=== PATIENT | male | born 1950 | race African-American/Black ===

== ENCOUNTER 2018-02-26 11:00 | Inpatient (IN) | payer MEDICARE, MEDICAID ==
[~2018-02-26] VITALS: Ht 188 cm; Wt 114.8 kg
[~2018-02-26 11:00] MED LIST: METH-611 PO
[2018-02-26 11:41] LABS: BASOPHILS % 0.5 % (0.0-2.0); EOSINOPHILS % 1.8 % (0.0-5.0); HEMATOCRIT. 48.2 % (42.0-52.0); HEMOGLOBIN. 16.4 g/dL (14.0-18.0); LYMPHOCYTES % 24.9 % (20.0-50.0); MEAN CORPUSCULAR HEMOGLOBIN 32.9 pg (28.0-32.0); MEAN CORPUSCULAR VOLUME 96.5 fL (80.0-94.0); NEUTROPHILS % 66.8 % (40.0-76.0); PLATELET 254 x1000/uL (130-400); RED BLOOD CELL COUNT 4.99 mill/uL (4.7-6.1); RED CELL DISTRIBUTION WIDTH 14.1 % (11.6-14.6)
[2018-02-26 11:47] LABS: CHLORIDE 109 mEq/L (98-107)
[2018-02-26] MEDS ORDERED: KETOROLAC 60MG/2ML VIAL IM ONE (13:45)
[2018-02-26] MEDS ORDERED: AMPICILLIN SOD/SULBACTAM NA 3 G in SODIUM CHLORIDE 0.9% 100 ML IV STA (16:58)
[2018-02-26] MEDS ORDERED: KETOROLAC 15MG/ML VIAL IV ONE (17:00)
[2018-02-26] MEDS ORDERED: MORPHINE SULFATE 4 MG/ML CPJ (NOT FOR IM USE) IV ONE (17:00)
[2018-02-26] MEDS ORDERED: SODIUM CHLORIDE 0.9% 1,000 ML IV ONE (17:00)
[2018-02-26] MEDS ORDERED: ONDANSETRON HCL 4MG/2ML VIAL IV PRN (18:15)
[2018-02-26] MEDS ORDERED: IPRATROPIUM/ALBUTEROL 0.5-3(2.5)MG/3ML NEB INH PRN (18:15)
[2018-02-26] MEDS ORDERED: MORPHINE SULFATE 4 MG/ML CPJ (NOT FOR IM USE) IV PRN (18:45)
[2018-02-26] MEDS ORDERED: DIPHENHYDRAMINE 50MG/ML VIAL IV PRN (18:45)
[2018-02-26] MEDS ORDERED: LACTULOSE 20G/30ML UDC PO PRN (18:45)
[2018-02-26] MEDS ORDERED: NICOTINE 14MG PATCH TD NR (21:00)
[2018-02-26] MEDS ORDERED: ZOLPIDEM TARTRATE 5MG TABLET PO PRN (21:00)
[2018-02-26] MEDS ORDERED: PIPERACILLIN/TAZ 3.375G PREMIX 50 ML IV SCH (22:00)
[2018-02-26 22:20] VITALS: BP 129/90
[2018-02-26 23:00] VITALS: BP 129/90
[2018-02-26] MEDS: MORPHINE SULFATE 4 MG/ML CPJ (NOT FOR IM USE) IV PRN (23:32)
[2018-02-26] MEDS: FAMOTIDINE 20MG/2ML VIAL IV SCH (23:32)
[2018-02-27] VITALS: BP 122/80
[2018-02-27] MEDS ORDERED: ACETAMINOPHEN 325MG TABLET PO PRN
[2018-02-27] MEDS: PIPERACILLIN/TAZ 3.375G PREMIX 50 ML IV SCH ×2 (00:17→05:31)
[2018-02-27] MEDS ORDERED: AMLO2.5T2 PO (02:02)
[2018-02-27] MEDS ORDERED: HYDR-3280 PO (02:02)
[2018-02-27 02:19] LABS: CLARITY URINE CLEAR (CLEAR); COLOR URINE YELLOW (YELLOW); KETONES URINE NEGATIVE (NEGATIVE); LEUKOCYTE ESTERASE URINE NEGATIVE (NEGATIVE); NITRITE URINE NEGATIVE (NEGATIVE); OCCULT BLOOD URINE NEGATIVE (NEGATIVE); PH URINE 5.5 (4.5-8.0); PROTEIN URINE NEGATIVE (NEGATIVE); SPECIFIC GRAVITY URINE 1.014 (1.005-1.030); UROBILINOGEN URINE 0.2 E.U./dL (0.2-1.0)
[2018-02-27 02:29] LABS: *AMPHETAMINES SCREEN URINE NEGATIVE (NEGATIVE); *BARBITURATES SCREEN URINE NEGATIVE (NEGATIVE); *BENZODIAZEPINES SCREEN URINE NEGATIVE (NEGATIVE); *COCAINE SCREEN URINE NEGATIVE (NEGATIVE)
[2018-02-27 02:30] LABS: CANNABINOID URINE SCREEN PRESUMTIVE POSITIVE (NEGATIVE); METHADONE URINE SCREEN NEGATIVE (NEGATIVE); OPIATES URINE SCREEN PRESUMTIVE POSITIVE (NEGATIVE); PHENCYCLIDINE URINE SCREEN NEGATIVE (NEGATIVE)
[2018-02-27 04:00] VITALS: BP 105/54
[2018-02-27 08:00] VITALS: BP 120/88
[2018-02-27] MEDS ORDERED: NICOTINE 14MG PATCH TD SCH ×2 (09:00)
[2018-02-27] MEDS: FAMOTIDINE 20MG/2ML VIAL IV SCH (09:01)
[2018-02-27] MEDS: MORPHINE SULFATE 4 MG/ML CPJ (NOT FOR IM USE) IV PRN (09:02)
[2018-02-27] MEDS ORDERED: LIDOCAINE HCL/PF 1% 10 MG/ML 5ML VIAL ONE (12:23)
[2018-02-27] MEDS ORDERED: SODIUM BICARBONATE 4% (2.4MEQ) 5ML VIAL IV ONE (12:24)
== END 2018-02-27 12:55 | disposition left against medical advice (07) | DRG 156 ==
LOC: ER 11:43 → 5WST 17:52 → SUPCPDRO 17:56 → EDBEDREQSVC 18:35 → EDBEDREQTM 18:35 → ENRESERV 20:51 → ER 22:05
PROVIDERS: ADMIT Internal Medicine; ATTEND Internal Medicine
DX: K11.8 Other diseases of salivary glands (principal); E87.5 Hyperkalemia; B19.20 Unspecified viral hepatitis C without hepatic coma; D72.829 Elevated white blood cell count, unspecified; F17.210 Nicotine dependence, cigarettes, uncomplicated; R59.1 Generalized enlarged lymph nodes; Z53.21 Procedure and treatment not carried out due to patient leaving prior to being seen by health care provider; I10 Essential (primary) hypertension; Z53.29 Procedure and treatment not carried out because of patient's decision for other reasons; F10.10 Alcohol abuse, uncomplicated; F19.10 Other psychoactive substance abuse, uncomplicated; Z79.1 Long term (current) use of non-steroidal anti-inflammatories (NSAID); Z79.899 Other long term (current) drug therapy; Z91.19 Patient's noncompliance with other medical treatment and regimen
CPT/HCPCS: 36415; 70490; 71045; 74176; 76536; 80048; 80076; 80305; 81003; 82248; 84443; 84484; 85025; 87040; 87086; 87186; 96365; 96375; 99285; J0295; J1885; J2270; J2543; J3490; J7030; J7050

== ENCOUNTER 2019-08-21 17:21 | Emergency (ER) | payer MEDICARE, MEDICAID ==
[~2019-08-21] VITALS: Ht 190.5 cm; Wt 110.0 kg
[~2019-08-21 17:21] MED LIST changes: +AMLO2.5T2 PO; +HYDR-3280 PO; -METH-611 PO
[2019-08-21] MEDS ORDERED: IBUPROFEN 600MG TABLET PO ONE (19:30)
[2019-08-21] MEDS ORDERED: DIPHENHYDRAMINE 25MG CAPSULE PO ONE (19:30)
[2019-08-21 19:55] VITALS: BP 111/80
== END 2019-08-21 19:55 | disposition home or self-care (01) ==
LOC: ER 17:21
DX: D17.22 Benign lipomatous neoplasm of skin and subcutaneous tissue of left arm (principal); S40.862A Insect bite (nonvenomous) of left upper arm, initial encounter; S40.861A Insect bite (nonvenomous) of right upper arm, initial encounter; W57.XXXA Bitten or stung by nonvenomous insect and other nonvenomous arthropods, initial encounter; Y93.89 Activity, other specified; Y92.89 Other specified places as the place of occurrence of the external cause
CPT/HCPCS: 99283

== ENCOUNTER 2019-10-30 08:48 | Inpatient (IN) | payer MEDICARE, MEDICAID ==
[~2019-10-30] VITALS: Ht 188 cm; Wt 100.7 kg
[2019-10-30] MEDS ORDERED: SODIUM CHLORIDE 0.9% 1,000 ML IV ONE (11:06)
[2019-10-30] MEDS ORDERED: MAGNESIUM/ALUMINUM HYDROXIDE/SIMETHICONE 30ML UDC PO STA (11:06)
[2019-10-30 11:34] LABS: BASOPHILS % 0.6 % (0.0-2.0); EOSINOPHILS % 0.7 % (0.0-5.0); HEMATOCRIT. 45.9 % (42.0-52.0); HEMOGLOBIN. 15.5 g/dL (14.0-18.0); LYMPHOCYTES % 16.4 % (20.0-50.0); MEAN CORPUSCULAR HEMOGLOBIN 34.6 pg (28.0-32.0); MEAN CORPUSCULAR VOLUME 102.2 fL (80.0-94.0); MEAN PLATELET VOLUME 9.4 fl (7.4-10.4); MONOCYTES % 4.9 % (2.0-8.0); NEUTROPHILS % 77.4 % (40.0-76.0); PLATELET 187 x1000/uL (130-400); RED BLOOD CELL COUNT 4.49 mill/uL (4.7-6.1); RED CELL DISTRIBUTION WIDTH 13.7 % (11.6-14.6)
[2019-10-30 11:41] LABS: PROTHROMBIN TIME 10.7 sec (9.6-11.0)
[2019-10-30] MEDS ORDERED: PANTOPRAZOLE SODIUM 40 MG/VIAL IV ONE (14:30)
[2019-10-30 15:25] LABS: CHLORIDE 107 mEq/L (98-107)
[2019-10-30] MEDS ORDERED: ACETAMINOPHEN 325MG TABLET PO PRN (17:45)
[2019-10-30] MEDS ORDERED: ACETAMINOPHEN 650MG SUPP PR PRN (17:45)
[2019-10-30] MEDS ORDERED: DOCUSATE SODIUM 100MG CAPSULE PO PRN (17:45)
[2019-10-30] MEDS ORDERED: NA PHOS,M-B/NA PHOS,DI-BA ENEMA 118ML PR PRN (17:45)
[2019-10-30] MEDS ORDERED: ONDANSETRON HCL 4MG/2ML INJ IV PRN (17:45)
[2019-10-30] MEDS ORDERED: DIPHENHYDRAMINE 50MG/ML VIAL IV PRN (17:45)
[2019-10-30] MEDS ORDERED: MAGNESIUM/ALUMINUM HYDROXIDE/SIMETHICONE 30ML UDC PO PRN (17:45)
[2019-10-30] MEDS ORDERED: GUAIFENESIN 200MG/10ML SUGAR FREE UDC PO PRN (17:45)
[2019-10-30] MEDS ORDERED: CLONIDINE 0.1MG TABLET PO PRN (17:45)
[2019-10-30] MEDS ORDERED: IPRATROPIUM/ALBUTEROL 0.5-3(2.5)MG/3ML NEB NEB PRN (17:45)
[2019-10-30] MEDS ORDERED: DEXT 5%/0.45% NACL 1000ML 1,000 ML IV SCH (18:00)
[2019-10-30] MEDS ORDERED: PIPERACILLIN/TAZ 3.375G PREMIX 50 ML IV SCH (18:15)
[2019-10-30] MEDS: MORPHINE SULFATE 2 MG/ML CPJ (NOT FOR IM USE) IV PRN (20:06)
[2019-10-30] MEDS ORDERED: MVI, ADULT NO.1 10 ML, FOLIC ACID 1 MG, THIAMINE HCL 100 MG in DEXT 5%/0.45% NACL 1000M... IV SCH ×4 (23:00)
[2019-10-30] MEDS: DEXT 5%/0.45% NACL 1000ML 1,000 ML IV SCH (23:00)
[2019-10-31] VITALS (7 sets, daily range): BP systolic 116–145; BP diastolic 64–89
[2019-10-31 00:21] LABS: CREATINE KINASE 58 IU/L (39-308)
[2019-10-31 00:22] LABS: CREATINE KINASE MB FRACTION < 1.0 ng/mL (0.5-3.6)
[2019-10-31] MEDS: MORPHINE SULFATE 2 MG/ML CPJ (NOT FOR IM USE) IV PRN ×2 (01:30→19:58)
[2019-10-31] MEDS: PIPERACILLIN/TAZOBACTAM 3.375 G in DEXT 5% WATER 100 ML IV SCH ×5 (01:57→20:39)
[2019-10-31 08:32] LABS: BASOPHILS % 0.7 % (0.0-2.0); EOSINOPHILS % 2.4 % (0.0-5.0); HEMATOCRIT. 40.3 % (42.0-52.0); HEMOGLOBIN. 13.9 g/dL (14.0-18.0); LYMPHOCYTES % 27.6 % (20.0-50.0); MEAN CORPUSCULAR VOLUME 101.3 fL (80.0-94.0); MEAN PLATELET VOLUME 8.7 fl (7.4-10.4); NEUTROPHILS % 63.3 % (40.0-76.0); PLATELET 187 x1000/uL (130-400); RED BLOOD CELL COUNT 3.98 mill/uL (4.7-6.1); RED CELL DISTRIBUTION WIDTH 13.3 % (11.6-14.6)
[2019-10-31 08:50] LABS: CHLORIDE 107 mEq/L (98-107)
[2019-10-31 09:00] LABS: LDL CHOLESTEROL 46 mg/dL (5-100)
[2019-10-31] MEDS ORDERED: METHADONE HCL 10MG TABLET PO SCH (09:00)
[2019-10-31 09:01] LABS: CREATINE KINASE 58 IU/L (39-308); CREATINE KINASE MB FRACTION < 1.0 ng/mL (0.5-3.6); HDL CHOLESTEROL 85 mg/dL (40-59)
[2019-10-31 09:02] LABS: T4 FREE 1.06 ng/dL (0.76-1.46)
[2019-10-31] MEDS: PANTOPRAZOLE SODIUM 40 MG/VIAL IV SCH (09:49)
[2019-10-31] MEDS: METHADONE HCL 10MG TABLET PO SCH (09:54)
[2019-10-31] MEDS: LORAZEPAM 0.5MG TABLET PO PRN ×2 (13:16→20:39)
[2019-10-31 17:53] LABS: HEMATOCRIT 41.5 % (42.0-52.0); HEMOGLOBIN 14.2 g/dL (14.0-18.0)
[2019-10-31] MEDS: DEXT 5%/0.45% NACL 1000ML 1,000 ML IV SCH (18:55)
[2019-10-31] MEDS ORDERED: IOHEXOL-300 100 ML BOTTLE ONE (22:05)
[2019-11-01] VITALS (7 sets, daily range): BP systolic 122–144; BP diastolic 68–88
[2019-11-01] MEDS: PIPERACILLIN/TAZOBACTAM 3.375 G in DEXT 5% WATER 100 ML IV SCH ×4 (00:43→17:02)
[2019-11-01 06:54] LABS: CHLORIDE 106 mEq/L (98-107)
[2019-11-01 06:56] LABS: HEMATOCRIT 41.2 % (42.0-52.0); HEMOGLOBIN 14.3 g/dL (14.0-18.0); MEAN CORPUSCULAR HEMOGLOBIN 35.2 pg (28.0-32.0); MEAN CORPUSCULAR VOLUME 101.2 fL (80.0-94.0); PLATELET 183 x1000/uL (130-400); RED BLOOD CELL COUNT 4.07 mill/uL (4.7-6.1); RED CELL DISTRIBUTION WIDTH 13.3 % (11.6-14.6)
[2019-11-01] MEDS: PANTOPRAZOLE SODIUM 40 MG/VIAL IV SCH (08:56)
[2019-11-01] MEDS: METHADONE HCL 10MG TABLET PO SCH (08:58)
[2019-11-01] MEDS: DEXT 5%/0.45% NACL 1000ML 1,000 ML IV SCH (09:00)
[2019-11-01] MEDS: MORPHINE SULFATE 2 MG/ML CPJ (NOT FOR IM USE) IV PRN ×2 (13:22→21:29)
[2019-11-01] MEDS: LORAZEPAM 0.5MG TABLET PO PRN ×2 (16:39→20:36)
[2019-11-02] VITALS: BP 130/80
[2019-11-02] MEDS: PIPERACILLIN/TAZOBACTAM 3.375 G in DEXT 5% WATER 100 ML IV SCH ×4 (01:01→18:03)
[2019-11-02] MEDS: DEXT 5%/0.45% NACL 1000ML 1,000 ML IV SCH ×2 (01:01→18:01)
[2019-11-02] MEDS: LORAZEPAM 0.5MG TABLET PO PRN ×3 (02:45→22:12)
[2019-11-02] MEDS: MORPHINE SULFATE 2 MG/ML CPJ (NOT FOR IM USE) IV PRN (02:45)
[2019-11-02 04:00] VITALS: BP 132/82
[2019-11-02 08:00] VITALS: BP 100/76
[2019-11-02] MEDS: PANTOPRAZOLE SODIUM 40 MG/VIAL IV SCH (08:13)
[2019-11-02] MEDS: METHADONE HCL 10MG TABLET PO SCH (08:13)
[2019-11-02 08:38] LABS: BASOPHILS % 0.5 % (0.0-2.0); EOSINOPHILS % 2.2 % (0.0-5.0); HEMATOCRIT. 42.4 % (42.0-52.0); HEMOGLOBIN. 14.8 g/dL (14.0-18.0); MEAN CORPUSCULAR HEMOGLOBIN 35.2 pg (28.0-32.0); MEAN CORPUSCULAR VOLUME 100.6 fL (80.0-94.0); MEAN PLATELET VOLUME 8.8 fl (7.4-10.4); MONOCYTES % 5.6 % (2.0-8.0); NEUTROPHILS % 71.7 % (40.0-76.0); PLATELET 192 x1000/uL (130-400); RED BLOOD CELL COUNT 4.21 mill/uL (4.7-6.1); RED CELL DISTRIBUTION WIDTH 13.3 % (11.6-14.6)
[2019-11-02 08:42] LABS: INR 1.1; PARTIAL THROMBOPLASTIN TIME 29.4 sec (23.4-31.0); PROTHROMBIN TIME 10.9 sec (9.6-11.0)
[2019-11-02 08:49] LABS: CHLORIDE 104 mEq/L (98-107)
[2019-11-02 12:00] VITALS: BP 116/64
[2019-11-02] MEDS ORDERED: POTASSIUM CHLORIDE INJ 40 MEQ in DEXT 5% WATER 250 ML IV SCH (12:00)
[2019-11-02] MEDS ORDERED: KETAMINE HCL 50 MG/ML 10ML ONE (13:29)
[2019-11-02] MEDS ORDERED: PROPOFOL 200MG/20ML VIAL IV ONE (13:30)
[2019-11-02] MEDS ORDERED: MIDAZOLAM HCL 2 MG/2 ML VIAL ONE (13:30)
[2019-11-02] MEDS ORDERED: LIDOCAINE HCL/PF 1% 10 MG/ML 5ML VIAL ONE (13:30)
[2019-11-02] MEDS ORDERED: SODIUM CHLORIDE 0.9% 10ML VIAL ONE (13:31)
[2019-11-02] MEDS ORDERED: SIMETHICONE 40 MG/0.6 ML 30ML ONE (13:56)
[2019-11-02] MEDS ORDERED: GLYCOPYRROLATE 0.2 MG/ML 2ML VIAL ONE (13:58)
[2019-11-02 20:00] VITALS: BP 106/60
[2019-11-03] VITALS: BP 110/76
[2019-11-03] MEDS: PIPERACILLIN/TAZOBACTAM 3.375 G in DEXT 5% WATER 100 ML IV SCH ×3 (00:46→12:00)
[2019-11-03 04:00] VITALS: BP 118/70
[2019-11-03 07:11] LABS: HEMATOCRIT 37.6 % (42.0-52.0); HEMOGLOBIN 13.2 g/dL (14.0-18.0); MEAN CORPUSCULAR HEMOGLOBIN 35.4 pg (28.0-32.0); MEAN CORPUSCULAR VOLUME 101.4 fL (80.0-94.0); PLATELET 164 x1000/uL (130-400); RED BLOOD CELL COUNT 3.71 mill/uL (4.7-6.1); RED CELL DISTRIBUTION WIDTH 13.5 % (11.6-14.6)
[2019-11-03 08:00] VITALS: BP 127/68
[2019-11-03 08:28] LABS: CHLORIDE 105 mEq/L (98-107)
[2019-11-03] MEDS ORDERED: POTASSIUM CHLORIDE 20MEQ TABLET SR PO NR (10:15)
[2019-11-03] MEDS: METHADONE HCL 10MG TABLET PO SCH (10:20)
[2019-11-03] MEDS: PANTOPRAZOLE SODIUM 40 MG/VIAL IV SCH (10:20)
[2019-11-03] MEDS: DEXT 5%/0.45% NACL 1000ML 1,000 ML IV SCH (10:20)
[2019-11-03] MEDS: LORAZEPAM 0.5MG TABLET PO PRN ×2 (10:38→15:49)
[2019-11-03 12:00] VITALS: BP 128/67
[2019-11-03] MEDS ORDERED: PANT40SU MT (12:29)
[2019-11-03 18:02] VITALS: BP 127/82
== END 2019-11-03 19:15 | disposition home or self-care (01) | DRG 378 ==
LOC: ER 08:48 → 7WST 15:07 → ENRESERV 22:41
PROVIDERS: ADMIT Internal Medicine; ATTEND Internal Medicine
PROC: 0DB98ZX Excision of Duodenum, Via Natural or Artificial Opening Endoscopic, Diagnostic (ICD-10-PCS; principal; 2019-11-02)
PROC: 0DB78ZX Excision of Stomach, Pylorus, Via Natural or Artificial Opening Endoscopic, Diagnostic (ICD-10-PCS; 2019-11-02)
DX: K29.71 Gastritis, unspecified, with bleeding (principal); E44.1 Mild protein-calorie malnutrition; B19.20 Unspecified viral hepatitis C without hepatic coma; R07.89 Other chest pain; F19.10 Other psychoactive substance abuse, uncomplicated; K29.81 Duodenitis with bleeding; K74.60 Unspecified cirrhosis of liver; D72.829 Elevated white blood cell count, unspecified; K63.9 Disease of intestine, unspecified; F10.10 Alcohol abuse, uncomplicated; I10 Essential (primary) hypertension; F17.210 Nicotine dependence, cigarettes, uncomplicated; R63.4 Abnormal weight loss; K70.9 Alcoholic liver disease, unspecified; K40.90 Unilateral inguinal hernia, without obstruction or gangrene, not specified as recurrent; K57.90 Diverticulosis of intestine, part unspecified, without perforation or abscess without bleeding; Z68.28 Body mass index [BMI] 28.0-28.9, adult
CPT/HCPCS: 36415; 74176; 74178; 80048; 80053; 80061; 82270; 82378; 82550; 82553; 84439; 84443; 84484; 85014; 85018; 85025; 85027; 87015; 87045; 87427; 87449; 87493; 88305; 88313; 89055; 93005; 93306; 93970; 97162; 99285; C1893; C9113; J2250; J2270; J2405; J2543; J2704; J3411; J3480; J3490; J7030; J7060; Q9967

== ENCOUNTER 2019-11-27 18:28 | Emergency (ER) | payer MEDICARE, MEDICAID ==
[~2019-11-27] VITALS: Ht 182.9 cm; Wt 88.0 kg
[~2019-11-27 18:28] MED LIST changes: +PANT40SU MT
[2019-11-28] MEDS ORDERED: SODIUM CHLORIDE 0.9% 1,000 ML IV ONE (00:42)
[2019-11-28 01:16] LABS: *AMPHETAMINES SCREEN URINE NEGATIVE (NEGATIVE); *BARBITURATES SCREEN URINE NEGATIVE (NEGATIVE); *BENZODIAZEPINES SCREEN URINE PRESUMTIVE POSITIVE (NEGATIVE)
[2019-11-28 01:17] LABS: *COCAINE SCREEN URINE NEGATIVE (NEGATIVE); CANNABINOID URINE SCREEN PRESUMTIVE POSITIVE (NEGATIVE); METHADONE URINE SCREEN PRESUMTIVE POSITIVE (NEGATIVE); OPIATES URINE SCREEN NEGATIVE (NEGATIVE); PHENCYCLIDINE URINE SCREEN NEGATIVE (NEGATIVE)
[2019-11-28 01:27] LABS: BASOPHILS % 0.3 % (0.0-2.0); EOSINOPHILS % 1.1 % (0.0-5.0); HEMATOCRIT. 42.5 % (42.0-52.0); HEMOGLOBIN. 14.7 g/dL (14.0-18.0); MEAN CORPUSCULAR HEMOGLOBIN 34.9 pg (28.0-32.0); MEAN CORPUSCULAR VOLUME 100.8 fL (80.0-94.0); MEAN PLATELET VOLUME 8.3 fl (7.4-10.4); MONOCYTES % 4.8 % (2.0-8.0); NEUTROPHILS % 77.8 % (40.0-76.0); PLATELET 205 x1000/uL (130-400); RED BLOOD CELL COUNT 4.21 mill/uL (4.7-6.1); RED CELL DISTRIBUTION WIDTH 12.8 % (11.6-14.6)
[2019-11-28 01:38] LABS: CHLORIDE 93 mEq/L (98-107)
[2019-11-28 01:42] LABS: ETHANOL BLOOD < 10 mg/dL
[2019-11-28] MEDS ORDERED: LORAZEPAM 1MG TABLET PO ONE (04:00)
[2019-11-28 05:58] VITALS: BP 112/71
== END 2019-11-28 06:02 | disposition home or self-care (01) ==
LOC: ER 18:28
DX: R53.1 Weakness (principal); G89.29 Other chronic pain; K74.60 Unspecified cirrhosis of liver; I10 Essential (primary) hypertension; Z79.899 Other long term (current) drug therapy
CPT/HCPCS: 36415; 80053; 80305; 80320; 82140; 83605; 83690; 85025; 86850; 86900; 86901; 93005; 93970; 99284; J7030; G0480

== ENCOUNTER 2019-12-10 20:32 | Emergency (ER) | payer MEDICARE, MEDICAID | END 2019-12-10 21:52 | disposition left against medical advice (07) | LOC: ER 20:32 | DX: R68.89 Other general symptoms and signs (principal); Z53.21 Procedure and treatment not carried out due to patient leaving prior to being seen by health care provider ==